=== PATIENT | female | born 1980 | race African-American/Black ===

== ENCOUNTER 2023-09-03 20:26 | Outpatient (CLI) | payer MEDICAID, SELFPAY ==
[2023-09-03 21:52] LABS: Reticulocyte Hemoglobin Equivi 14.6 pg (29.0-35.0); Reticulocyte Percent 0.9 % (0.5-2.0); Reticulocytes Absolute 0.03 # (0.03-0.08)
[2023-09-03 22:00] LABS: Iron* 24 ug/dL (37-170)
[2023-09-03 22:09] LABS: Percent Iron Saturation 6 % (20-50); Total Iron Binding Capacity 408 ug/dL (265-497)
== END 2023-09-03 20:27 | disposition home or self-care (01) ==
PROVIDERS: Visit Provider Physician Assistant
DX: D64.9 Anemia, unspecified (principal)
CPT/HCPCS: 82728; 83540; 83550; 85045

== ENCOUNTER 2023-09-04 12:04 | Outpatient (CLI) | payer MEDICAID, SELFPAY ==
--- NOTE | 2023-11-12 07:56 | ONC.NURNOTE ---
Patient's insurance 09/04/2023. Discussed with patient and spouse x3 (09/04, 09/20, 10/16). PCP notified of issue on 10/17/2023. Will await call from patient when insurance is reinstated to work on PA and scheduling.
== END 2023-09-04 12:05 | disposition home or self-care (01) ==
PROVIDERS: Visit Provider Physician Assistant Medical
DX: D64.9 Anemia, unspecified (principal); R53.83 Other fatigue
CPT/HCPCS: 82306; 82607; 82746; 83021; 86258; 86364; 86480

== ENCOUNTER 2024-02-05 13:00 | Outpatient (RCR) | payer MEDICAID, SELFPAY ==
--- NOTE | 2024-01-28 12:34 | PC.NURSE ---
Diagnosis: Iron Deficiency Anemia
--- NOTE | 2024-01-29 09:38 | URNOTE ---
Request received for authorization for Ferric Carboxymaltose (Injectafer) ([id number]). Prior authorization is not required as pt carries [place] for coverage.
[2024-01-29 13:17] VITALS: BP 113/73; PULSE 80; RESP 16; TEMP 36.6; O2SAT 100
[2024-01-29] MEDS: FERRIC CARBOXYMALTOSE 750 MG in 0.9 % SODIUM CHLORIDE 250 ml 250 ML 1060 MG IVPB (13:40)
[2024-01-29] MEDS: 0.9 % SODIUM CHLORIDE 250 ml IV (13:45)
[2024-01-29] MEDS: SODIUM CHLORIDE 0.9 % (FLUSH) 10 ML SYRINGE IVF (13:46)
--- NOTE | 2024-01-29 14:12 | ONC.NURNOTE ---
Patient stated that when she lived in [place], she received 4 doses of Feraheme with 40mg of methylprednisone prior to infusion. Patient denies having a reaction to iron and also denies having any allergies. Current order does not call for pre-medications and patient denies at this time. Tolerated infusion well.
[2024-01-29 14:33] VITALS: BP 104/65; PULSE 74; RESP 16; TEMP 36.2; O2SAT 100
[2024-02-05 13:00] VITALS: BP 107/73; PULSE 81; RESP 14; TEMP 36.6; O2SAT 100
[2024-02-05] MEDS: SODIUM CHLORIDE 0.9 % (FLUSH) 10 ML SYRINGE IVF (13:20)
[2024-02-05] MEDS: 0.9 % SODIUM CHLORIDE 250 ml IV (13:20)
[2024-02-05] MEDS: FERRIC CARBOXYMALTOSE 750 MG in 0.9 % SODIUM CHLORIDE 250 ml 250 ML 1060 MG IVPB (13:20)
== END 2024-07-27 23:59 | disposition home or self-care (01) ==
LOC: CCIC 13:00
PROVIDERS: Visit Provider Physician Assistant
DX: D50.9 Iron deficiency anemia, unspecified (principal)
CPT/HCPCS: 96365; J1439; J7050